=== PATIENT | female | born 1955 | race Caucasian/White ===

== ENCOUNTER 2017-09-23 05:44 | Day surgery (SDC) | payer OTHER ==
[2017-09-23] MEDS ORDERED: ceFAZolin 2 GM/DEXTROSE 100 ML IV ONE (06:03)
[2017-09-23] MEDS ORDERED: LR 1,000 ML IV ONE (06:34)
[2017-09-23] MEDS ORDERED: MIDAZOLAM 2 MG/2 ML VIAL IVP ONE (06:47)
--- NOTE | 2017-09-23 06:49 | PDANEPAE ---
ANE History of Present Illness Laparoscopic cholecystectomy with possible cholangiogram ANE Past Medical History - Cardiovascular History Hx Hypertension: Yes Hx Arrhythmias: No Hx Chest Pain: No Hx Coronary Artery / Peripheral Vascular Disease: No Hx CHF / Valvular Disease: No Hx Palpitations: No - Pulmonary History Hx COPD: No Hx Asthma/Reactive Airway Disease: Yes Hx Recent Upper Respiratory Infection: No Hx Oxygen in Use at Home: No Hx Sleep Apnea: No Sleep Apnea Screening Result - Last Documented: Negative Pulmonary History Comment: ASTHMA TRIGGERS SMOKE/ODORS. CONTROLLED WITH RX'S - Neurologic History Hx Cerebrovascular Accident: No Hx Seizures: No Hx Dementia: No - Endocrine History Hx Diabetes: No - Renal History Hx Renal Disorders: No - Liver History Hx Hepatic Disorders: Yes Hepatic History Comment: LIVER ENZYMES ABNORMAL RELATED TO GALL STONE - Neurological & Psychiatric Hx Hx Neurological and Psychiatric Disorders: No - Cancer History Hx Cancer: No - Congenital Disorder History Hx Congenital Disorders: No - GI History Hx Gastrointestinal Disorders: Yes Gastrointestinal History Comment: INTERMITTENT DIARRHEA. NEW DX GALL STONES - Other Health History Other Health History: OSTEOPENIA. ROSACEA - Chronic Pain History Chronic Pain: No - Surgical History Prior Surgeries: HYSTEROSCOPY WITH POLYP REMVL AND ABLATION 01/2010. BLADDER SUSPENSION. [facility] NE[facility]OMA'S. TONSILLECTOMY ANE Review of Systems Review of systems is: negative Review of Systems: - Exercise capacity METS (RN): 4 METS ANE Patient History - Allergies Allergies/Adverse Reactions: No Known Allergies Allergy (Verified 09/23/17 06:04) - Home Medications Home medications: home medication list seen and reviewed Home Medications: Asmanex Inh (*) DAILY 09/20/17 [Last Taken 09/23/17] Atorvastatin Calcium HS 09/20/17 [Last Taken 09/22/17] Estraderm 0.1 MG (RX) Q3D 09/20/17 [Last Taken 09/22/17] Herbals/Supplements -Info Only DAILY 09/20/17 [Last Taken 09/22/17] Losartan Potassium HS 09/20/17 [Last Taken 09/22/17] Xopenex Hfa Inhaler (*) PRN 09/20/17 [Last Taken 08/24/17] Keflex 09/23/17 [Last Taken 09/23/17] - NPO status NPO Status: no food or drink >8 hours NPO Since - Liquids (Date): 09/23/17 NPO Since - Liquids (Time): 05:00 NPO Since - Solids (Date): 09/23/17 NPO Since - Solids (Time): 19:00 - Anes Hx Anes Hx: post operative nausea - Smoking Hx Smoking Status: Never smoked - Family Anes Hx Family Anes Hx: none ANE Labs/Vital Signs - Vital Signs Vital Signs: reviewed preoperatively; see RN documention for details Blood Pressure: 130/86 Heart Rate: 70 Respiratory Rate: 16 O2 Sat (%): 94 Height: 160.02 cm Weight: 71.668 kg ANE Physical Exam - Airway Neck exam: FROM Mallampati Score: Class 1 Mouth exam: normal dental/mouth exam - Pulmonary Pulmonary: no respiratory distress - Cardiovascular Cardiovascular: regular rate and rhythym - ASA Status ASA Status: II ANE Anesthesia Plan Anesthesia Plan: general endotracheal anesthesia
[2017-09-23] MEDS ORDERED: IOTHALAMATE MEG (CONRAY) 50 ML VIAL IV ONE (07:06)
[2017-09-23] MEDS ORDERED: BUPIVACAINE 0.25% 30 ML SDV ONE (07:06)
[2017-09-23] MEDS ORDERED: PROPOFOL 200 MG/20 ML VIAL ONE (07:09)
[2017-09-23] MEDS ORDERED: fentaNYL 250 MCG/5 ML INJ ONE (07:09)
[2017-09-23] MEDS ORDERED: LIDOCAINE 2% 100 MG/5 ML SYR ONE (07:09)
[2017-09-23] MEDS ORDERED: DEXAMETHASONE 4 MG/ML VIAL ONE (07:09)
[2017-09-23] MEDS ORDERED: ONDANSETRON 4 MG/2 ML VIAL ONE (07:09)
[2017-09-23] MEDS ORDERED: ROCURONIUM 50 MG/5 ML VIAL ONE (07:09)
[2017-09-23] MEDS ORDERED: SUGAMMADEX SODIUM 200 MG/2 ML VIAL IVP ONE (07:09)
--- NOTE | 2017-09-23 07:10 | PDHPUP ---
History & Physical Update H&P update statement: This history and physical update is based on an assessment of the patient which was completed after admission or registration (within 24 hours), but prior to the surgery/procedure. H&P update: H&P reviewed & patient examined, no change in patient's condition since H&P completed
[2017-09-23] MEDS ORDERED: ACETAMINOPHEN 500 MG TAB PO PRN (07:57)
[2017-09-23] MEDS ORDERED: PROMETHAZINE HCL 25 MG/ML INJ IVP PRN (07:57)
[2017-09-23] MEDS ORDERED: DEXAMETHASONE 4 MG/ML VIAL IVP PRN (07:57)
[2017-09-23] MEDS ORDERED: LABETALOL HCL 5 MG/ML 20 ML MDV IVP PRN (07:57)
[2017-09-23] MEDS ORDERED: ONDANSETRON 4 MG/2 ML VIAL IVP PRN (07:57)
[2017-09-23] MEDS ORDERED: fentaNYL 100 MCG/2 ML INJ IVP PRN (07:57)
[2017-09-23] MEDS ORDERED: NALOXONE HCL 0.4 MG/ML INJ IVP PRN (07:57)
[2017-09-23] MEDS ORDERED: HYDROmorphONE/DILAUDID 1 MG/ML INJ IVP PRN (07:57)
[2017-09-23] MEDS ORDERED: HYDROCODONE/APAP 5/325 TAB PO PRN (07:57)
[2017-09-23] MEDS ORDERED: MEPERIDINE 25 MG/0.5 ML AMP IVP PRN (07:57)
[2017-09-23] MEDS ORDERED: ALBUTEROL 3 ML DEYVIAL IH PRN (07:57)
--- NOTE | 2017-09-23 07:59 | POSTANESTH ---
Post Anesthetic Evaluation Cardiovascular Status: Normal, Stable, Similar to Pre-Op Cond Respiratory Status: Normal, Stable, Similar to Pre-op Cond. Level of Consciousness/Mental Status: Can Participate in Eval, Mildly Sleepy, Arousable Pain Control: Adequate, Prn Tx Ordered Nausea/Vomiting Control: Adequate, Prn Tx Ordered Complications Possibly Related to Anesthesia: None Noted
[2017-09-23] MEDS ORDERED: GLYCOPYRROLATE 0.2 MG/1 ML VIAL ONE (08:16)
[2017-09-23] MEDS ORDERED: NEOSTIGMINE METHYLSULFATE 5 MG/5 ML SYR ONE (08:16)
--- NOTE | 2017-09-23 08:29 | POSTOPPROG ---
Post Op Note Date of Operation: 09/23/17 Surgeon: Chris Mccoy Anesthesiologist: Kimberly Anesthesia: GET(General Endotracheal) Pre-op Diagnosis: biliary colic Post-op Diagnosis: chronic cholecystitis Procedure: lap topher, attempted IOC Findings: critical view Inf/Abcess present in the surg proc area at time of surgery?: No EBL: Minimal Specimen(s): GB
--- NOTE | 2017-09-23 09:23 | GOP ---
[f rep st] OPERATIVE REPORT DATE OF OPERATION: 09/23/2017 SURGEON: Chris Mccoy MD OUTSOLE BEVELER: None. ANESTHESIA: General endotracheal. ANESTHESIOLOGIST: Dr. Harris. PREOPERATIVE DIAGNOSIS: Biliary colic. POSTOPERATIVE DIAGNOSIS: Chronic cholecystitis. PROCEDURE PERFORMED: Laparoscopic cholecystectomy with attempted intraoperative cholangiogram. FINDINGS: Critical view obtained. Cholangiogram was attempted to be performed multiple times withou t successful visualization. SPECIMENS: Gallbladder. ESTIMATED BLOOD LOSS: 10 cc. DESCRIPTION OF PROCEDURE: The patient was greeted in the preoperative suite. Once again, risks, tay efits, and alternatives were discussed. Consent was signed. She was then brought back to the operat derik suite, placed on the OR table in supine position. After all anesthesia machines including SCDs w ere on and functioning, [employer] time-out was performed. After successful induction of general anesthesia, the patient's abdomen was prepped and draped in typical sterile fashion. I e ntered the abdomen via an infraumbilical cutdown, through which the Veress needle was passed. I achi eved pneumoperitoneum to 15 mmHg CO2, which was well tolerated by the patient. Through this, I inser yaw a 12 mm Visiport. Once successfully in the abdomen, I inserted 3 additional 5 mm trocars, 1 in t he subxiphoid, 2 in the right upper quadrant all under direct visualization. I successfully grasped the gallbladder and successfully retracted it over the edge of the liver. Dissecting at the infundib ulum I identified 2 and only 2 structures. I initially clipped and cut the cystic artery. I then br ought the Ferrer clamp in and multiple attempts were made to shoot a cholangiogram, but were unsuccess ful secondary to the contrast leaking out. This was subsequently abandoned. I did take multiple pic tures, but none of which showed any filling of the biliary tree. I then clipped and cut the cystic d uct. The gallbladder proper was then taken off the liver bed using electrocautery. It was placed in an EndoCatch bag and removed. Hemostasis was assured in the operative site. I irrigated the right upper quadrant with a liter of sterile saline noting clear effluent in the suction canister. Local a nesthesia was infiltrated into all port sites, which were then removed. I evacuated my pneumoperiton eum. I closed my infraumbilical port site with an 0 Vicryl stitch noting excellent fascial reapproxi mation. Skin was then closed with Monocryl. Dermabond was placed. The patient was then extubated i n the operative suite and taken the PACU in satisfactory condition. DRAINS: None. COUNTS: All counts were reported as correct x2. /[id number]/MODL
[2017-09-23] MEDS ORDERED: HYDROCODONE/APAP 5/325 TAB ONE (09:30)
[2017-09-23 09:40] VITALS: BP 126/80
== END 2017-09-23 09:51 | disposition home or self-care (01) ==
LOC: FSGY 05:44
PROVIDERS: ATTEND Surgery
PROC: 0FT44ZZ Resection of Gallbladder, Percutaneous Endoscopic Approach (ICD-10-PCS; principal; 2017-09-23 07:15)
DX: K81.1 Chronic cholecystitis (principal)
CPT/HCPCS: J0690; J1100; J2001; J2250; J2405; J2704; J2710; J3010; Q9961

== ENCOUNTER → 2018-03-18 | Outpatient (CLI) | payer OTHER | LOC: FIMAGING 13:47 | PROVIDERS: ATTEND Internal Medicine | DX: Z12.31 Encounter for screening mammogram for malignant neoplasm of breast (principal) ==